=== PATIENT | female | born 1990 | race Two or more races ===

== ENCOUNTER → 2019-12-22 | Outpatient (CLI) | payer OTHER | END | disposition home or self-care (01) | LOC: PRENATAL 11:00 | PROVIDERS: ATTEND Obstetrics & Gynecology Maternal & Fetal Medicine | DX: Z36.89 Encounter for other specified antenatal screening (principal); O36.80X1 Pregnancy with inconclusive fetal viability, fetus 1; Z3A.12 12 weeks gestation of pregnancy ==

== ENCOUNTER → 2020-02-16 | Outpatient (CLI) | payer OTHER | END | disposition home or self-care (01) | LOC: PRENATAL 08:00 | PROVIDERS: ATTEND Obstetrics & Gynecology Maternal & Fetal Medicine | DX: O35.0XX1 Maternal care for (suspected) central nervous system malformation in fetus, fetus 1 (principal); O35.3XX1 Maternal care for (suspected) damage to fetus from viral disease in mother, fetus 1; O98.512 Other viral diseases complicating pregnancy, second trimester; Z3A.20 20 weeks gestation of pregnancy ==

== ENCOUNTER 2020-06-27 12:30 | Inpatient (IN) | payer OTHER ==
[~2020-06-27] VITALS: Ht 167.6 cm; Wt 78.9 kg
[2020-07-10] MEDS ORDERED: PRENATAL TABLE1 EAC1 PO (17:37)
[2020-07-13] MEDS ORDERED: IBUPROFEN800 MG PO (14:57)
[2020-07-13] MEDS ORDERED: SIMETHICONE125 M1 PO (14:57)
[2020-07-13] MEDS ORDERED: DOCUSATE SODIU100 MG PO (14:57)
[2020-07-13] MEDS ORDERED: PREPLUS CA-FE1 EACH PO (14:58)
[2020-07-13] MEDS ORDERED: CODE1TAB37 PO (14:58)
== END 2020-07-13 15:38 | disposition home or self-care (01) | DRG 788 ==
LOC: OB/GYN 07-03 12:30 → LDR 07-10 16:12 → OB/GYN 07-10 16:12
PROVIDERS: ADMIT Obstetrics & Gynecology; ATTEND Obstetrics & Gynecology
PROC: 3E033VJ Introduction of Other Hormone into Peripheral Vein, Percutaneous Approach (ICD-10-PCS; 2020-07-10)
PROC: 10907ZC Drainage of Amniotic Fluid, Therapeutic from Products of Conception, Via Natural or Artificial Opening (ICD-10-PCS; 2020-07-10)
PROC: 4A1HXFZ Monitoring of Products of Conception, Cardiac Rhythm, External Approach (ICD-10-PCS; 2020-07-10)
PROC: 10D00Z1 Extraction of Products of Conception, Low, Open Approach (ICD-10-PCS; principal; 2020-07-10 21:00)
DX: O62.1 Secondary uterine inertia (principal); O62.4 Hypertonic, incoordinate, and prolonged uterine contractions; O48.0 Post-term pregnancy; Z37.0 Single live birth; Z3A.41 41 weeks gestation of pregnancy; Z20.822 Contact with and (suspected) exposure to COVID-19